=== PATIENT | female | born 1995 | race Caucasian/White ===

== ENCOUNTER 2024-09-09 10:38 | Inpatient (IN) | payer MEDICAID ==
[~2024-09-09] VITALS: Ht 170.2 cm; Wt 98.0 kg
[2024-09-09 10:53] VITALS: O2SAT 98
[2024-09-09 11:10] LABS: PLATELET COUNT (AUTO) 426 K/uL (150-450); RED BLOOD CELL COUNT(AUTO) 3.90 MIL/uL (4.00-5.20); RED CELL DISTRIBUTION WIDTH 14.6 % (11.5-14.5); WHITE BLOOD COUNT (AUTO) 8.1 K/uL (4.5-11.0)
[2024-09-09] MEDS ORDERED: BREX1TAB PO (11:12)
[2024-09-09] MEDS ORDERED: NORE1TAB32 PO (11:12)
[2024-09-09] MEDS ORDERED: TRAZ-257 PO (11:12)
[2024-09-09] MEDS ORDERED: PRAZ2 PO (11:12)
[2024-09-09] MEDS ORDERED: AMLO2.5T96 PO (11:12)
[2024-09-09] MEDS ORDERED: LEVO50 PO (11:12)
[2024-09-09] MEDS ORDERED: CARI6CAP PO (11:12)
[2024-09-09] MEDS ORDERED: OMEP-148 PO (11:12)
[2024-09-09] MEDS ORDERED: ACET-2247 PO (11:12)
[2024-09-09] MEDS ORDERED: IBUP-1492 PO (11:12)
[2024-09-09] MEDS ORDERED: LORA0.5T20 PO (11:12)
[2024-09-09] MEDS ORDERED: ATOM60CA7 PO (11:12)
[2024-09-09] MEDS ORDERED: LITH300T45 PO (11:12)
[2024-09-09] MEDS ORDERED: ALBU18HF12 IH (11:12)
[2024-09-09] MEDS ORDERED: BUSP15 PO (11:12)
[2024-09-09 11:15] LABS: COVID AG,FIA SOURCE NASAL SWAB
[2024-09-09 11:22] LABS: CALCIUM, TOTAL 8.4 mg/dL (8.8-10.5); CREATININE 0.75 mg/dL (0.60-1.30); GLOMERULAR FILTR. RATE CALC > 60 mL/min (>60); GLUCOSE,RANDOM 92 mg/dL (70-110); SODIUM SERUM 137 mmol/L (136-145); UREA NITROGEN, BLOOD 10 mg/dL (7-18)
[2024-09-09 12:38] LABS: SARS-COV2 (COVID) ANTIGEN,FIA Negative (Negative)
[2024-09-09] MEDS ORDERED: DICL100G60 TP (18:11)
[2024-09-09] MEDS ORDERED: CHLO50TA53 PO (18:11)
[2024-09-09] MEDS ORDERED: [UNRECOGNIZED DRUG - CODE] PO (18:11)
[2024-09-09] MEDS ORDERED: BIOT5000 PO (18:11)
[2024-09-09] MEDS ORDERED: LORA10TA7 PO (18:11)
[2024-09-09] MEDS ORDERED: PALI234D IM (18:11)
[2024-09-09 18:41] VITALS: BP 114/63; PULSE 91; RESP 20; TEMP 97.2; O2SAT 100
[2024-09-10] MEDS: LEVOTHYROXINE SODIUM 50 MCG TABLET PO SCH (06:38)
[2024-09-10 08:18] VITALS: BP 115/78; PULSE 86; RESP 17; TEMP 97.4; O2SAT 99
[2024-09-10] MEDS ORDERED: NICOTINE 14 MG/24 HOUR PATCH TD PRN (11:30)
[2024-09-10] MEDS ORDERED: MAGNESIUM HYDROXIDE SUSPENSION 30 ML UDCUP PO PRN (11:30)
[2024-09-10] MEDS ORDERED: GuaiFENesin/D-METHORPHAN [SUGAR-FREE] 200-20MG/10 ML SYRUP UDCUP PO PRN (11:30)
[2024-09-10] MEDS ORDERED: DOCUSATE SODIUM 100 MG CAPSULE PO PRN (11:30)
[2024-09-10] MEDS ORDERED: ACETAMINOPHEN 325 MG TABLET PO PRN (11:30)
[2024-09-10] MEDS ORDERED: PETROLATUM,WHITE 28 GM JELLY TP PRN (11:30)
[2024-09-10] MEDS ORDERED: ALBUTEROL SULFATE HFA 90 MCG/PUFF 8 GM INHALER IH PRN (11:30)
[2024-09-10] MEDS ORDERED: MAG HYDROX/ALUMINUM HYD/SIMETH ES 30 ML SUSPENSION UDCUP PO PRN (11:30)
[2024-09-10] MEDS ORDERED: LOPERAMIDE HCL 2 MG CAPSULE PO PRN (11:30)
[2024-09-10] MEDS: ATOMOXETINE HCL 60 MG CAPSULE PO SCH (12:39)
[2024-09-10] MEDS: NICOTINE POLACRILEX 2 MG LOZENGE PO PRN (14:35)
[2024-09-10] MEDS: ONDANSETRON 4 MG TABLET PO PRN (14:48)
[2024-09-10] MEDS: LITHIUM CARBONATE 600 MG CAPSULE PO SCH (16:10)
[2024-09-10 21:22] VITALS: BP 118/72; PULSE 80; RESP 17; TEMP 98; O2SAT 99
[2024-09-10] MEDS: ZOLPIDEM TARTRATE 10 MG TABLET PO PRN (23:00)
[2024-09-11] MEDS ORDERED: LEVOTHYROXINE SODIUM 50 MCG TABLET PO SCH (06:30)
[2024-09-11 08:21] VITALS: BP 101/60; PULSE 81; RESP 16; TEMP 96.9; O2SAT 99
[2024-09-11 09:00] VITALS: BP 122/74; PULSE 80; RESP 18; TEMP 97; O2SAT 99
[2024-09-11] MEDS ORDERED: NORETHINDRONE ACETATE 5 MG TABLET PO SCH (09:00)
[2024-09-11] MEDS: OMEPRAZOLE 20 MG CAPSULE PO SCH (09:14)
[2024-09-11] MEDS: LORATADINE 10 MG TABLET PO SCH (09:31)
[2024-09-11 12:53] VITALS: RESP 18
[2024-09-11] MEDS: IBUPROFEN 400 MG TABLET PO PRN (12:53)
[2024-09-11 13:53] VITALS: RESP 18
[2024-09-11 22:15] VITALS: BP 117/68; PULSE 84; RESP 16; TEMP 98.1; O2SAT 98
[2024-09-12 08:16] VITALS: BP 102/65; PULSE 77; RESP 16; TEMP 97.9; O2SAT 98
[2024-09-12 09:18] LABS: APPEARANCE,URINE CLEAR (CLEAR); GLUCOSE, URINE (UA) NEGATIVE (NEGATIVE); LEUKOCYTE ESTERASE ,URINE NEGATIVE (NEGATIVE); NITRATE,URINE NEGATIVE (NEGATIVE); OCCULT BLOOD,URINE NEGATIVE (NEGATIVE); PH,URINE DRUG SCREEN 7.0 (5.0-8.0); SPECIFIC GRAVITIY, URINE 1.004 (1.003-1.030)
[2024-09-12 09:37] LABS: AMPHET/METH SCREEN,URINE NEGATIVE (NEGATIVE); BARBITURATE SCREEN, URINE NEGATIVE (NEGATIVE); CANNABINOID SCREEN,URINE NEGATIVE (NEGATIVE); COCAINE SCREEN,URINE NEGATIVE (NEGATIVE); METHADONE SCREEN, URINE NEGATIVE (NEGATIVE)
[2024-09-12 09:39] LABS: ALCOHOL, URINE DRUG SCREEN NEGATIVE (NEGATIVE)
[2024-09-12] MEDS ORDERED: BUSP15 PO (11:47)
[2024-09-12] MEDS ORDERED: LITH600C5 PO (11:48)
[2024-09-12] MEDS ORDERED: RISP-31 PO (11:49)
== END 2024-09-12 15:20 | DRG 750 ==
LOC: EMS 10:38 → B3A 15:44
PROVIDERS: ADMIT Psychiatry & Neurology Child & Adolescent Psychiatry; ATTEND Psychiatry & Neurology Child & Adolescent Psychiatry
PROC: GZ56ZZZ Individual Psychotherapy, Supportive (ICD-10-PCS; 2024-09-10)
PROC: GZ58ZZZ Individual Psychotherapy, Cognitive-Behavioral (ICD-10-PCS; 2024-09-10)
PROC: GZ52ZZZ Individual Psychotherapy, Cognitive (ICD-10-PCS; principal; 2024-09-11)
DX: F25.1 Schizoaffective disorder, depressive type (principal); D64.9 Anemia, unspecified; F31.9 Bipolar disorder, unspecified; E03.9 Hypothyroidism, unspecified; I10 Essential (primary) hypertension; Z20.822 Contact with and (suspected) exposure to COVID-19; J45.909 Unspecified asthma, uncomplicated; K21.9 Gastro-esophageal reflux disease without esophagitis; F90.9 Attention-deficit hyperactivity disorder, unspecified type; F17.200 Nicotine dependence, unspecified, uncomplicated; F41.9 Anxiety disorder, unspecified; Z91.048 Other nonmedicinal substance allergy status
CPT/HCPCS: 80048; 80307; 81003; 83036; 84443; 85025; 87081; 99285; G0480; Q0162